=== PATIENT | female | born 1965 | race Two or more races ===

== ENCOUNTER 2021-01-07 09:15 | Outpatient (CLI) | payer OTHER | END 2021-01-07 09:45 | disposition home or self-care (01) | LOC: PPH VACUNA 09:15 | PROVIDERS: ATTEND Emergency Medicine Pediatric Emergency Medicine | DX: Z23 Encounter for immunization (principal) ==

== ENCOUNTER 2023-02-06 10:26 | Outpatient (CLI) | payer OTHER | END 2023-02-06 14:08 | disposition home or self-care (01) | LOC: MAMO-SONO 10:26 | PROVIDERS: ATTEND Surgery | DX: Z12.31 Encounter for screening mammogram for malignant neoplasm of breast (principal); N60.11 Diffuse cystic mastopathy of right breast ==

== ENCOUNTER 2024-02-03 10:00 | Inpatient (IN) | payer OTHER ==
[~2024-02-03] VITALS: Ht 149.9 cm; Wt 59.0 kg
[2024-02-03] MEDS ORDERED: METROPOLOL (12:13)
[2024-02-03] MEDS ORDERED: LOSARTAN-HCTZ1 EAC1 PO (12:13)
[2024-02-03] MEDS ORDERED: SYNTHROID50 MCG PO (12:13)
[2024-02-03] MEDS ORDERED: ROSUVASTATIN CA20 MG PO (12:14)
[2024-02-03] MEDS ORDERED: PEPCID AC20 MG PO (12:15)
[2024-02-03 12:20] VITALS: BP 157/84
[2024-02-08] MEDS ORDERED: LIDOCAINE HCL 1%/EPINEPHRINE 20ML VIAL IJ ONE (08:30)
[2024-02-08] MEDS ORDERED: BUPIVACAINE HCL 30 ML VIAL IJ ONE (08:30)
[2024-02-08] MEDS ORDERED: CEFTRIAXONE SODIUM 2,000 MG VIAL IV ONE (08:30)
[2024-02-08] MEDS ORDERED: METRONIDAZOLE/SODIUM CHLORIDE 500 MG/100 ML PIGGYBACK IV ONE (08:30)
[2024-02-08] MEDS ORDERED: MORPHINE SULFATE 4 MG/ML CARTRIDGE IV PRN (09:45)
[2024-02-08] MEDS ORDERED: DEXTROSE 50 % IN WATER 0.5 G/ML DISP.SYRIN IV PRN (09:45)
[2024-02-08] MEDS ORDERED: OxyCODONE HCL 5 MG TABLET (ROXICODONE) PO PRN (09:45)
[2024-02-08] MEDS ORDERED: ONDANSETRON HCL 2 MG/ML VIAL IV PRN (09:45)
[2024-02-08] MEDS ORDERED: 0.9 % SODIUM CHLORIDE 1,000 ML IV SCH (09:45)
[2024-02-08] MEDS ORDERED: MORPHINE SULFATE 4 MG/ML VIAL IV ONE ×3 (10:30→12:25)
[2024-02-08 11:14] LABS: HEMATOCRIT 32.6 % (36.0-45.00); MEAN CELL VOLUME 91.4 fL (80.00-100.00); MEAN CORPUSCULAR HEMOGLOBIN 30.7 pg (27.00-32.0); MEAN CORPUSCULAR HGB CONC 33.6 g/dl (32.0-36.0); PLATELET COUNT 256 K/uL (150-450); RED BLOOD COUNT 3.57 M/uL (4.00-6.00); RED CELL DISTRIBUTION WIDTH 14.5 % (11.5-14.5)
[2024-02-08 12:05] LABS: ALBUMIN 3.3 gm/dL (3.4-5.0); CALCIUM 8.8 mg/dL (8.5-10.1); CREATININE SERUM 0.98 mg/dL (0.55-1.02); GFR 58.71; MAGNESIUM 1.7 mg/dL (1.8-2.4); PHOSPHOROUS 3.6 mg/dL (2.5-4.9); POTASSIUM 4.07 mEq/L (3.5-5.1)
[2024-02-08 13:00] VITALS: BP 118/58; O2SAT 100
[2024-02-08] MEDS ORDERED: ACETAMINOPHEN 500 MG GEL..CAP PO SCH (14:00)
[2024-02-08 15:52] VITALS: BP 115/57; O2SAT 100
[2024-02-08] MEDS ORDERED: HYOSCYAMINE SULFATE 0.125 MG TAB.SUBL SL SCH (17:00)
[2024-02-08] MEDS ORDERED: POLYETHYLENE GLYCOL 3350 17 GM BLIST.PACK PO SCH (17:00)
[2024-02-08] MEDS ORDERED: GABAPENTIN 300 MG CAPSULE PO SCH (17:00)
[2024-02-08] MEDS ORDERED: CELECOXIB 200 MG CAPSULE PO SCH (21:00)
[2024-02-08] MEDS ORDERED: FAMOTIDINE/PF 20 MG/2 ML VIAL IV PUSH SCH (21:00)
[2024-02-09 00:38] VITALS: BP 131/60; O2SAT 99
[2024-02-09] MEDS ORDERED: LEVOTHYROXINE SODIUM 50 MCG TABLET PO SCH (06:00)
[2024-02-09 06:17] LABS: HEMATOCRIT 30.6 % (36.0-45.00); HEMOGLOBIN 10.4 g/dL (12.0-15.00); MEAN CELL VOLUME 91.2 fL (80.00-100.00); PLATELET COUNT 147 K/uL (150-450); RED BLOOD COUNT 3.36 M/uL (4.00-6.00)
[2024-02-09 06:41] LABS: ALBUMIN 2.8 gm/dL (3.4-5.0); CALCIUM 8.2 mg/dL (8.5-10.1); CREATININE SERUM 0.97 mg/dL (0.55-1.02); GFR 59.4; MAGNESIUM 1.9 mg/dL (1.8-2.4); PHOSPHOROUS 2.6 mg/dL (2.5-4.9); POTASSIUM 3.5 mEq/L (3.5-5.1)
[2024-02-09 08:00] VITALS: BP 115/58; O2SAT 96
[2024-02-09] MEDS ORDERED: LOSARTAN/HYDROCHLOROTHIAZIDE 1 UDTAB TABLET PO SCH (09:00)
[2024-02-09] MEDS ORDERED: METOPROLOL SUCCINATE 25 MG TAB.SR.24H PO SCH (09:00)
[2024-02-09 16:00] VITALS: BP 120/75; O2SAT 98
[2024-02-09] MEDS ORDERED: ENOXAPARIN SODIUM 40 MG/0.4 ML SYRINGE SUBCUTANEO SCH (17:00)
[2024-02-10 00:41] VITALS: BP 108/66; O2SAT 100
[2024-02-10 08:10] VITALS: BP 117/73; O2SAT 97
[2024-02-10] MEDS ORDERED: ENOXAPARIN SODIUM 40 MG/0.4 ML SYRINGE SUBCUTANEO SCH (09:00)
[2024-02-10 15:59] VITALS: BP 136/76; O2SAT 99
[2024-02-11] VITALS: BP 102/58; O2SAT 97
[2024-02-11] MEDS ORDERED: HYOSCYAMINE0.125 M1 SL (11:30)
[2024-02-11] MEDS ORDERED: TRAM1TAB98 PO (11:31)
[2024-02-11] MEDS ORDERED: PEPCID AC20 MG PO (11:31)
[2024-02-11] MEDS ORDERED: INTESTINEX680 M1 PO (11:31)
== END 2024-02-11 12:18 | disposition home or self-care (01) | DRG 331 ==
LOC: SURG 02-08 05:33 → O/R 02-08 05:33 → SURH 02-08 05:33 → SURG 02-08 13:52
PROVIDERS: ADMIT Surgery; ATTEND Surgery
PROC: 0DBP4ZZ Excision of Rectum, Percutaneous Endoscopic Approach (ICD-10-PCS; 2024-02-08)
PROC: 0DJ08ZZ Inspection of Upper Intestinal Tract, Via Natural or Artificial Opening Endoscopic (ICD-10-PCS; 2024-02-08)
PROC: 0DTN4ZZ Resection of Sigmoid Colon, Percutaneous Endoscopic Approach (ICD-10-PCS; principal; 2024-02-08 11:00)
DX: K57.32 Diverticulitis of large intestine without perforation or abscess without bleeding (principal); R19.4 Change in bowel habit; R10.32 Left lower quadrant pain